=== PATIENT | male | born 1955 | race Caucasian/White ===

== ENCOUNTER 2021-12-24 13:44 | Outpatient (REF) | payer MEDICARE, SELFPAY ==
[2021-12-24 15:28] LABS: Basophils Absolute Auto 0.04 K/uL (0.00-0.30); Basophils Percent Auto 0.5 % (0.0-3.0); Eosinophils Absolute Auto 0.05 K/uL (0.00-0.50); Eosinophils Percent Auto 0.7 % (0.0-7.0); Hematocrit 43.1 % (37.0-53.0); Hemoglobin* 14.3 gm/dL (13.5-17.5); Immature Granulocytes Abs Auto 0.01 K/uL (0.00-0.30); Lymphocytes Percent Auto 18.9 % (20-44); Mean Corpuscular HGB Conc 33 gm/dL (32-36); Mean Corpuscular Hemoglobin 33 pg (26-34); Mean Corpuscular Volume 100 fL (80-100); Monocytes Percent Auto 8.5 % (0.0-11.0); Neutrophils Absolute Auto 5.22 K/uL (1.7-7.0); Neutrophils Percent Auto 71.3 % (42.0-72.0); Platelet Count* 268 K/uL (140-440); RDW Coefficient of Variation % 12.4 % (11.5-15.5); Red Blood Count 4.31 m/uL (4.30-5.90); White Blood Count* 7.32 K/uL (4.50-11.00)
[2021-12-24 15:31] LABS: Slide Review Reflex No
[2021-12-24 15:34] LABS: Uric Acid* 8.4 mg/dL (2.2-8.4)
[2021-12-24 16:31] LABS: Erythrocyte SedimentationRate* 6 mm/hr (2-15)
[2021-12-26 11:42] LABS: Rheumatoid Factor < 10 IU/mL (0-14)
[2021-12-26 16:30] LABS: HLA-B27 Negative (Negative)
== END 2021-12-24 13:45 | disposition home or self-care (01) ==
LOC: NPINS 13:44
PROVIDERS: PCP Internal Medicine; Visit Provider Podiatrist Foot Surgery
DX: M79.671 Pain in right foot (principal); M79.672 Pain in left foot; M1A.9XX0 Chronic gout, unspecified, without tophus (tophi)
CPT/HCPCS: 84550; 85025; 85651; 86431; 86812

== ENCOUNTER 2022-05-15 16:01 | Outpatient (CLI) | payer MEDICARE, SELFPAY | END 2022-05-15 16:02 | disposition home or self-care (01) | PROVIDERS: PCP Internal Medicine; Visit Provider Internal Medicine | DX: N20.0 Calculus of kidney (principal) | CPT/HCPCS: 87086 ==

== ENCOUNTER 2022-07-10 10:11 | Outpatient (CLI) | payer MEDICARE, SELFPAY ==
[2022-07-10 11:31] LABS: Albumin* 4.6 g/dL (3.3-5.0)
[2022-07-10 11:32] LABS: Chloride* 105 mmol/L (96-114); Potassium* 4.9 mmol/L (3.6-5.1); Sodium* 140 mmol/L (135-149)
[2022-07-10 11:34] LABS: Alkaline Phosphatase* 80 U/L (40-150); Aspartate Amino Transferase* 24 U/L (12-35); Bilirubin Total* 1.2 mg/dL (0.1-1.5); Blood Urea Nitrogen* 21 mg/dL (7-30); Carbon Dioxide* 29 mmol/L (20-32); Cholesterol* 184 mg/dL (90-199); Estimated Glomerular Filt Rate 81 ml/min; Total Protein* 7.2 g/dL (6.0-8.3)
[2022-07-10 11:35] LABS: Alanine Aminotransferase* 20 U/L (4-50); Calcium* 9.8 mg/dL (8.4-10.6); Glucose* 85 mg/dL (60-115); HDL Cholesterol* 89 mg/dL (>=40); LDL Cholesterol Calculated 88 mg/dL (<100); Triglycerides* 37 mg/dL (40-149)
[2022-07-10 12:03] LABS: PSA Screen* 5.85 ng/mL (0.10-4.00)
== END 2022-07-10 10:12 | disposition home or self-care (01) ==
LOC: NFLDREF 10:11
PROVIDERS: PCP Internal Medicine; Visit Provider Internal Medicine
DX: N52.9 Male erectile dysfunction, unspecified (principal); I10 Essential (primary) hypertension; Z12.5 Encounter for screening for malignant neoplasm of prostate; Z13.6 Encounter for screening for cardiovascular disorders
CPT/HCPCS: 80053; 80061; 84153

== ENCOUNTER 2022-10-24 08:03 | Outpatient (CLI) | payer MEDICARE, SELFPAY | END 2022-10-24 08:04 | disposition home or self-care (01) | LOC: NFLDREF 10-26 10:30 | PROVIDERS: PCP Internal Medicine; Referring Provider Internal Medicine; Visit Provider Internal Medicine | DX: N52.9 Male erectile dysfunction, unspecified (principal); Z12.5 Encounter for screening for malignant neoplasm of prostate; I10 Essential (primary) hypertension | CPT/HCPCS: 84153 ==

== ENCOUNTER 2022-12-09 13:48 | Outpatient (CLI) | payer MEDICARE, SELFPAY ==
[2022-12-09] MEDS: PERFLUTREN LIPID MICROSPHERES 2 ML VIAL IV (15:35)
== END 2022-12-09 13:49 | disposition home or self-care (01) ==
LOC: RAD 13:49
PROVIDERS: PCP Internal Medicine; Visit Provider Internal Medicine
DX: I44.7 Left bundle-branch block, unspecified (principal); I51.7 Cardiomegaly
CPT/HCPCS: 93306; Q9957

== ENCOUNTER 2023-01-24 15:12 | Outpatient (CLI) | payer MEDICARE, SELFPAY ==
--- OUTSIDE RECORDS SUMMARY | 2023-01-24 15:18 | XMS_ITS | Continuity of Care Document ---
Author Name Unknown Organization [facility] Address [address] [address] [place] [address] Phone Care Team Providers Care Commercial Intelligence Manager Name Role Phone Link Aureliano PINON Unavailable Unavailable Allergies, Adverse Reactions, Alerts Substance Reaction Status Criticality No Known allergies Medications Medication Instructions Dosage Effective Dates (start - stop) Status Comments MiralaxBisacodylMagCit Colon Prep Use as directed - Active Zantac 150 mg Tab take 1 tablet (150MG) by oral route every day as needed - Active Multiple Vitamin Tab take 1 tablet by oral route every day with food - Active Procedures Procedure Date Colonoscopy Flex; W/remov Les- 12 Colonoscopy Flex; W/bx 1/mx Level Iv-surg Path Gross/micro 12 Colonoscopy Flex; W/remov Les- 11 Colonoscopy Flex; W/bx 1/mx Level Iv-surg Path Gross/micro 11 Advance Directives Directive Yes / No Effective Date File Name No Information Encounters Encounter Description Practice Location Reason(s) For Visit Diagnoses Date Provider Providers Copied on Encounter [facility], [address] [address], [place], [id number], [place] tel:[phone] [facility] No Information 7 Jose A Bedoya. [address] [facility], [facility] [address], [place], [place], [id number] , [place]. [phone] [facility], [address] [address], [place], [place], [id number], [place] tel:[phone] [facility] Polyp-intes/rect/ stom-unc BehPersonal History Colon PolypsColon Cancer ScreeningPersonal History Colon PolypsBenign Neoplasm Colon 2 [place] Rich. [address] [place] [address], [place] [address], [place], [place], [id number] , [place]. tel: [phone] Referring Provider: [place], [address] [place], [address]. tel:[phone] [facility], [address] [address], [place], [place], [id number], [place] tel:[phone] [facility] Polyp-intes/rect/ stom-unc BehColon Cancer ScreeningRectal Polyp/BenignBenig n Neoplasm Lg Bowel 1 [address] Rich. [facility] [address], [place], [place], [id number] , [place]. tel: [phone] Referring Provider: [place], [address] [place], [address]. tel:[phone] Family History Family Member Type Diagnosis Age At Onset No Information Payers Payer name Insurance type Covered green party ID Kameron munoz(s) [facility] CI [id number] Social History Type Description Quantity Date Captured Comments Sex Male Smoking Status No Information Chief Complaint And Reason For Visit No Information Reason For Referral Reason For Referral No Information History Of Present Illness Encounter Date Complaint History Of Prese nt Illness No Information Functional Status Date Functional Assessmen t No Information Instructions Date Instruction Additional Infor mation No Information Assessments Type Assessment Date No Information Patient Care Teams Name Effective Dates (start - stop) Status Members No Information
== END 2023-01-24 15:13 | disposition home or self-care (01) ==
PROVIDERS: PCP Internal Medicine; Visit Provider Internal Medicine
DX: I42.0 Dilated cardiomyopathy (principal); I10 Essential (primary) hypertension
CPT/HCPCS: 80048; 80061; 80076; 83880; 84443

== ENCOUNTER 2023-02-11 13:46 | Outpatient (CLI) | payer MEDICARE, SELFPAY | END 2023-02-11 13:47 | disposition home or self-care (01) | LOC: NFLDREF 13:47 | PROVIDERS: PCP Internal Medicine; Visit Provider Internal Medicine | DX: I10 Essential (primary) hypertension (principal); I42.0 Dilated cardiomyopathy; Z12.5 Encounter for screening for malignant neoplasm of prostate | CPT/HCPCS: 80048; 84153 ==